=== PATIENT | female | born 1985 | race Caucasian/White ===

== ENCOUNTER 2020-11-11 11:53 | Emergency (ER) | payer OTHER ==
[2020-11-11] MEDS ORDERED: NAPROXEN500 MG PO (13:38)
== END 2020-11-11 13:50 | disposition home or self-care (01) ==
LOC: FER 11:53
DX: S29.012A Strain of muscle and tendon of back wall of thorax, initial encounter (principal); S39.012A Strain of muscle, fascia and tendon of lower back, initial encounter; M54.2 Cervicalgia; V49.50XA Passenger injured in collision with unspecified motor vehicles in traffic accident, initial encounter; Y92.410 Unspecified street and highway as the place of occurrence of the external cause
CPT/HCPCS: 72072; 72100